=== PATIENT | male | born 1980 ===

== ENCOUNTER 2023-09-14 14:13 | Emergency (ER) | payer OTHER ==
[2023-09-14 14:30] VITALS: BP 137/89; PULSE 85; RESP 18; TEMP 97.4; BMI 24.4
[2023-09-14] MEDS ORDERED: ALBUTEROL SO4 2.5/IPRATROPIUM 0.5 INH SOL 3 ML VIAL.NEB. NEB SCH ×2 (16:16→20:00)
[2023-09-14] MEDS: ALBUTEROL SO4 2.5/IPRATROPIUM 0.5 INH SOL 3 ML VIAL.NEB. NEB ONE (16:20)
== END 2023-09-14 17:50 | disposition home or self-care (01) ==
LOC: EDSEX 14:13 → JER 14:13
PROC: 3E0F7GC Introduction of Other Therapeutic Substance into Respiratory Tract, Via Natural or Artificial Opening (ICD-10-PCS; principal; 2023-09-14)
DX: R05.9 Cough, unspecified (principal); R06.02 Shortness of breath; Z20.822 Contact with and (suspected) exposure to COVID-19
CPT/HCPCS: 0241U-QW; 71045-TC-FY; 93005; 93010; 99285-25

== ENCOUNTER 2023-10-25 12:06 | Emergency (ER) | payer OTHER ==
[2023-10-25 12:32] VITALS: BMI 29.0
[2023-10-25 14:06] LABS: BASO % 0.9 % (0-2.0); EOS % 3.7 % (0-4.5); HEMATOCRIT 47.1 % (35.4-49); HEMOGLOBIN 15.5 GM/dL (11.7-16.9); LYMPH % 28.5 % (8-40); MCH 27.9 pg (25.7-33.7); MCHC 32.9 g/dl (32.0-35.9); MEAN CELL VOLUME 84.8 fl (80-96); MEAN PLT VOLUME 8.6 fl (7.5-11.1); MONO % 8.9 % (3.8-10.2); PLATELET COUNT 256 10^3/uL (134-434); RBC 5.55 M/mm3 (4.00-5.60); RDW 14.7 % (11.9-15.9); WHITE BLOOD COUNT 6.4 K/mm3 (4.0-10.0)
[2023-10-25 14:23] LABS: ACTIVATED PTT 38.2 SECONDS (25.2-36.5); INR 1.04 (0.83-1.09); PROTHROMBIN TIME (PATIENT) 11.9 SEC (9.7-13.0)
[2023-10-25 14:27] LABS: POTASSIUM 4.1 mmol/L (3.5-5.1)
[2023-10-25 14:29] LABS: ALBUMIN 4.1 g/dl (3.4-5.0); BLOOD UREA NITROGEN 15.8 mg/dL (7-18); CALCIUM 9.6 mg/dL (8.5-10.1)
[2023-10-25 14:32] LABS: CREATININE 0.8 mg/dL (0.55-1.3)
[2023-10-25 14:34] LABS: BILIRUBIN,TOTAL 0.3 mg/dL (0.2-1); TOT PROT 7.6 g/dl (6.4-8.2)
[2023-10-25 14:37] LABS: N-TERMINAL BNP 8.6 pg/ml (5-125)
[2023-10-25 16:12] VITALS: BP 119/80; PULSE 75; RESP 16; TEMP 97.9
== END 2023-10-25 16:12 | disposition home or self-care (01) ==
LOC: JER 12:06
DX: R06.02 Shortness of breath (principal); R05.9 Cough, unspecified; R07.89 Other chest pain; R09.81 Nasal congestion; F41.9 Anxiety disorder, unspecified
CPT/HCPCS: 36415; 71046-TC-FY; 71275-TC; 80053; 83880; 84484; 85025; 85610; 85730; 86850; 86900; 86901; 93005; 93010; 99285-25; Q9967